=== PATIENT | female | born 1990 | race Caucasian/White ===

== ENCOUNTER 2022-05-28 12:29 | Emergency (ER) | payer OTHER ==
[~2022-05-28] VITALS: Ht 152.4 cm; Wt 95.3 kg
[2022-05-28] MEDS ORDERED: CIPRO100 MG (12:53)
[2022-05-28] MEDS ORDERED: PERCOCET 10-321 EACH (12:54)
[2022-05-28] MEDS ORDERED: DICY20TA (12:54)
== END 2022-05-28 16:27 | disposition home or self-care (01) ==
LOC: ER 12:29
DX: R10.9 Unspecified abdominal pain (principal); Z88.6 Allergy status to analgesic agent; Z91.018 Allergy to other foods; Z88.0 Allergy status to penicillin; Z91.041 Radiographic dye allergy status